=== PATIENT | male | born 1955 | race Caucasian/White ===

== ENCOUNTER → 2023-03-23 14:59 | Outpatient (CLI) | payer MEDICARE, SELFPAY ==
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
[2023-03-23 16:15] LABS: Basophils % 0.7 % (0.1-2.0); Eosinophils # 0.2 K/mm3 (0.0-0.4); Eosinophils % 2.8 % (0.1-12.0); Hematocrit 43.3 % (42.0-52.0); Hemoglobin 14.6 g/dL (14.1-18.0); Lymphocytes # 1.4 K/mm3 (0.7-4.5); Lymphocytes % 25.8 % (10-50); Mean Corpuscular HGB Conc 33.6 g/dL (31.8-35.4); Mean Corpuscular Hemoglobin 32.1 pg (27.0-31.2); Mean Corpuscular Volume 95.4 fl (80-94); Mean Platelet Volume 8.3 fl (7.4-10.4); Monocytes # 0.4 K/mm3 (0.1-1.0); Monocytes % 6.4 % (1.7-9.3); Neutrophils # 3.6 K/mm3 (1.8-7.8); Neutrophils % 64.3 % (37.0-80.0); Platelet Count 238 K/mm3 (142-424); Red Blood Count 4.54 M/mm3 (4.60-6.20); White Blood Count 5.6 K/mm3 (4.8-10.8)
[2023-03-23 16:48] LABS: Erythrocyte Sedimentation Rate 17 mm/hr (0-20)
[2023-03-23 16:51] LABS: Alanine Aminotransferase 17 U/L (12-78); Albumin Level 4.2 g/dl (3.5-5.0); Albumin/Globulin Ratio 1.3 (1.1-1.8); Alkaline Phosphatase 64 U/L (38-126); Anion Gap 11.3 mEq/L (5-15); Aspartate Amino Transferase 23 U/L (17-59); Bilirubin,Total 0.5 mg/dl (0.2-1.3); Blood Urea Nitrogen 12 mg/dl (9-20); Calcium 9.7 mg/dl (8.4-10.2); Carbon Dioxide 30 mmol/L (22.0-30.0); Chloride 104 mmol/L (98-107); Estimated Glomerular Filt Rate 75 ml/min (>60); GFR (African American) 91 ML/MIN (>60); Globulin 3.3 g/dL (1.3-3.2); Glucose 93 mg/dl (74-100); Potassium 4.3 mmoL/L (3.5-5.1); Sodium 141 mmol/L (136-145); Total Protein,Serum 7.5 g/dl (6.3-8.2)
[2023-03-23 16:56] LABS: C-Reactive Protein 0.6 mg/L (0-4)
[2023-03-23 17:22] LABS: Thyroid Stimulating Hormone 1.84 uIU/mL (0.465-4.68)
[2023-03-23 17:57] LABS: Vitamin B12 444 pg/mL (239-931)
[2023-03-25 08:58] LABS: Ceruloplasmin 19.6 mg/dL (16.0-31.0)
[2023-03-25 11:15] LABS: Rapid Plasma Reagin Ab Titer Non Reactive (NonRea<1:1)
[2023-04-01 15:31] LABS: Zinc 98 ug/dL (44-115)
== END ==
PROVIDERS: PCP Internal Medicine; Visit Provider Specialist
DX: Z87.828 Personal history of other (healed) physical injury and trauma (principal); R29.90 Unspecified symptoms and signs involving the nervous system; G12.20 Motor neuron disease, unspecified; M21.372 Foot drop, left foot; R29.898 Other symptoms and signs involving the musculoskeletal system; R41.3 Other amnesia
CPT/HCPCS: 36415; 73590; 80053; 82390; 82525; 82607; 82746; 84443; 84630; 85025; 85651; 86140; 86593

== ENCOUNTER → 2023-03-27 13:21 | Outpatient (CLI) | payer MEDICARE, SELFPAY ==
--- NOTE | 2023-03-27 13:21 | MR_ITS ---
FINAL REPORT CLINICAL HISTORY: abn exams, hyper reflexia, neck pain. WEAKNESS IN LEFT ARM AND LEG. LEFT FOOT DROP. COMPARISON: None FINDINGS: Multi planar MR imaging was obtained of the cervical spine with and without contrast. There is abnormal decreased signal throughout the cervical discs. The vertebrae are of normal height. There is no malalignment. The cervical cord demonstrates normal signal and configuration. C2-C3: There is no evidence of significant disc bulge or protrusion. There is no significant facet hypertrophy. C3-C4: There is no evidence of significant disc bulge or protrusion. There is no significant facet hypertrophy. C4-C5: Minimal midline disc protrusion. No significant spinal canal compromise. C5-C6: Minimal midline disc protrusion. No significant spinal canal compromise C6-C7: There is no evidence of significant disc bulge or protrusion. There is no significant facet hypertrophy. C7-T1: There is no evidence of significant disc bulge or protrusion. There is no significant facet hypertrophy. There is no abnormal contrast enhancement. IMPRESSION: Minimal midline protrusion at C4-5 and C5-6. Reviewed, Interpreted and Dictated by José Miguel Tsai MD Transcribed by Katrina Plaza Authenticated and [facility]
== END ==
PROVIDERS: PCP Internal Medicine; Visit Provider Specialist
DX: G12.20 Motor neuron disease, unspecified (principal); M21.372 Foot drop, left foot; M54.2 Cervicalgia; R26.89 Other abnormalities of gait and mobility; R29.2 Abnormal reflex; R29.6 Repeated falls; R29.898 Other symptoms and signs involving the musculoskeletal system; R29.90 Unspecified symptoms and signs involving the nervous system; R41.3 Other amnesia; Z82.0 Family history of epilepsy and other diseases of the nervous system; M54.50 Low back pain, unspecified
CPT/HCPCS: 72156; 76376; A9576

== ENCOUNTER → 2023-04-22 14:25 | Outpatient (CLI) | payer MEDICARE, SELFPAY ==
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
== END ==
PROVIDERS: PCP Internal Medicine; Visit Provider Specialist
DX: M25.512 Pain in left shoulder (principal); M54.9 Dorsalgia, unspecified; R29.898 Other symptoms and signs involving the musculoskeletal system
CPT/HCPCS: 72157; A9576

== ENCOUNTER → 2023-04-30 09:18 | Outpatient (CLI) | payer MEDICARE, SELFPAY ==
--- NOTE | 2023-04-30 09:23 | XR_ITS ---
FINAL REPORT CLINICAL HISTORY: lt shoulder pain COMPARISON: None FINDINGS: LEFT SHOULDER Three views demonstrate no acute fracture or dislocation. There is mild degenerative change of the acromioclavicular and glenohumeral joints. The visualized bony structures are well aligned. No soft tissue abnormality is seen. IMPRESSION: Mild acromioclavicular and glenohumeral degenerative change. Reviewed, Interpreted and Dictated by Herbie Fairbanks III, MD Transcribed by Nguyen Urbina Authenticated and [facility]
== END ==
PROVIDERS: Visit Provider Orthopaedic Surgery
DX: M25.512 Pain in left shoulder (principal)
CPT/HCPCS: 73030